=== PATIENT | male | born 1975 | race Caucasian/White ===

== ENCOUNTER → 2018-07-12 | Outpatient (CLI) | payer BC | LOC: M RAD 09:51 | DX: N44.2 Benign cyst of testis (principal) | CPT/HCPCS: 76870 ==

== ENCOUNTER → 2019-07-10 | Outpatient (REF) | payer BC ==
[~2019-07-10] MED LIST: HYDROCORTISONE0.5 %; PRED10TA2
== END ==
LOC: M LAB REF 16:44
PROVIDERS: ATTEND Internal Medicine
DX: Z11.4 Encounter for screening for human immunodeficiency virus [HIV] (principal)

== ENCOUNTER → 2019-07-10 | Outpatient (CLI) | payer BC ==
--- NOTE | 2019-07-10 16:08 | REP ---
Duplex extremity venous ultrasound: Left lower extremity. History: Pain and swelling left leg. History of DVT. Findings: The deep veins are anechoic and fully compressible from the groin to the popliteal fossa in the left lower extremity. Color flow imaging is homogeneous. Spectral Doppler interrogation demonstrates intact respiratory variation in flow and normal manual augmentation of flow. There is no evidence of deep vein thrombosis. Impression: Negative left lower extremity duplex venous ultrasound. No evidence of deep vein thrombosis. Electronically Signed by Jay Castro MD 07/10/2019 04:00 P
== END ==
LOC: M RAD 14:49
PROVIDERS: ATTEND Internal Medicine
DX: M79.605 Pain in left leg (principal); Z86.718 Personal history of other venous thrombosis and embolism

== ENCOUNTER → 2020-05-15 | Outpatient (REF) | payer BC ==
[2020-05-19 19:12] LABS: CHLAMYDIA DNA AMPLIFICATION POSITIVE (NEGATIVE); GC DNA AMPLIFICATION NEGATIVE (NEGATIVE)
== END ==
LOC: M LAB REF 12:23
PROVIDERS: ATTEND Internal Medicine
DX: R30.0 Dysuria (principal)

== ENCOUNTER → 2020-07-14 | Outpatient (REF) | payer BC | LOC: M LAB REF 10:48 | PROVIDERS: ATTEND Internal Medicine | DX: Z11.4 Encounter for screening for human immunodeficiency virus [HIV] (principal) ==

== ENCOUNTER → 2020-10-16 | Outpatient (CLI) | payer BC ==
--- NOTE | 2020-10-16 18:36 | REP ---
INDICATION: PAIN. COMPARISON: 02/03/2014 TECHNIQUE: Five views FINDINGS: Pedicles, spinous and transverse processes are grossly intact. Sacral ala foramina and SI joints unremarkable. Iliac wings intact some minor spurring acetabular roof on the right. Lateral view shows lordosis maintained. There is slight disc space narrowing at L4-5 and L5-S1 with small osteophytes but no spondylolysis or spondylolisthesis. No compression fracture or focal lesion. Minor hypertrophic facet degenerative changes. IMPRESSION: Lumbar spondylosis at L4-5 and L5-S1 without compression deformity or focal lesion. <Electronically signed by Bob Webb > 10/16/20 [id number]
== END ==
LOC: M WUC 10:54
PROVIDERS: ATTEND Physician Assistant Medical
DX: M47.816 Spondylosis without myelopathy or radiculopathy, lumbar region (principal)

== ENCOUNTER → 2021-02-12 | Outpatient (CLI) | payer BC | LOC: M LABSMTC 13:49 | PROVIDERS: ATTEND Anesthesiology | DX: Z01.818 Encounter for other preprocedural examination (principal); Z11.52 Encounter for screening for COVID-19 ==

== ENCOUNTER 2021-02-17 09:46 | Day surgery (SDC) | payer BC ==
[~2021-02-17] VITALS: Ht 188 cm; Wt 168.0 kg
[~2021-02-17 09:46] MED LIST changes: +NS 1,000 ML IV ONE
[2021-02-17] MEDS ORDERED: propofoL 200 MG/20 ML VIAL As Ordered ONE (11:06)
[2021-02-17] MEDS ORDERED: LIDOCAINE 2% 100MG/5ML SDV (FOR ANES.) As Ordered ONE (11:06)
--- NOTE | 2021-02-17 11:40 | ROOR ---
Patient Name: Ayden Valenzuela Procedure Date: 02/17/2021 11:16 AM Date of : 1975 Age: 45 Room: [facility] Gender: Male Note Status: Finalized Procedure: Total Colonoscopy to Cecum + ileoscopy Indications: Screening for colon cancer: Family history of colorectal cancer in distant relative(s) Providers: Adin Dave MD Referring MD: SHIRLEY MATTHEWS JR, MD Requesting Provider: Medicines: Monitored Anesthesia Care Complications: No immediate complications. Procedure: Pre-Anesthesia Assessment: - The heart rate, respiratory rate, oxygen saturations, blood pressure, adequacy of pulmonary ventilation, and response to care were monitored throughout the procedure. The Colonoscope was introduced through the anus and advanced to the terminal ileum, with identification of the appendiceal orifice and IC valve. The colonoscopy was performed without difficulty. The patient tolerated the procedure well. The quality of the bowel preparation was excellent. Findings: The perianal and digital rectal examinations were normal. Non-bleeding internal hemorrhoids were found during retroflexion. The hemorrhoids were small and Grade I (internal hemorrhoids that do not prolapse). No other significant abnormalities were identified in a careful examination of the remainder of the colon. The terminal ileum appeared normal. The exam was otherwise without abnormality on direct and retroflexion views. Impression: - Non-bleeding internal hemorrhoids. - The examined portion of the ileum was normal. - The examination was otherwise normal on direct and retroflexion views. - No specimens collected. - The exam was otherwise normal to the cecum. Recommendation: - Patient has a contact number available for emergencies. The signs and symptoms of potential delayed complications were discussed with the patient. Return to normal activities tomorrow. Written discharge instructions were provided to the patient. - High fiber diet. - Discharge patient to home. - Continue present medications. - Repeat colonoscopy in 7 years for screening purposes. - Return to referring physician. - The findings and recommendations were discussed with the patient's family. Procedure Code(s): --- Professional --- 39120, Colonoscopy, flexible; diagnostic, including collection of specimen(s) by brushing or washing, when performed (separate procedure) Diagnosis Code(s): --- Professional --- Z12.11, Encounter for screening for malignant neoplasm of colon Z80.0, Family history of malignant neoplasm of digestive organs K64.0, First degree hemorrhoids CPT copyright 2019 [employer]. All rights reserved. The codes documented in this report are preliminary and upon house carpenter helper review may be revised to meet current compliance requirements. Adin Dave MD Adin Dave MD 02/17/2021 11:40:18 AM Electronically signed by Adin Dave MD Number of Addenda: 0 Note Initiated On: 02/17/2021 11:16 AM Estimated Blood Loss: Estimated blood loss: none.
[2021-02-17 12:02] VITALS: BP 134/91
== END 2021-02-17 12:04 | disposition home or self-care (01) ==
LOC: M OPP 09:46
PROVIDERS: ATTEND Internal Medicine Gastroenterology
DX: Z12.11 Encounter for screening for malignant neoplasm of colon (principal); Z80.0 Family history of malignant neoplasm of digestive organs; K64.0 First degree hemorrhoids; K62.5 Hemorrhage of anus and rectum; Z88.8 Allergy status to other drugs, medicaments and biological substances; Z87.891 Personal history of nicotine dependence

== ENCOUNTER → 2022-02-09 | Outpatient (CLI) | payer BC ==
[~2022-02-09] MED LIST changes: -NS 1,000 ML IV ONE
== END ==
LOC: M WUC 13:03
PROVIDERS: ATTEND Physician Assistant
DX: S93.402A Sprain of unspecified ligament of left ankle, initial encounter (principal); S93.692A Other sprain of left foot, initial encounter; M77.32 Calcaneal spur, left foot

== ENCOUNTER → 2022-03-22 | Outpatient (CLI) | payer BC | LOC: M RAD 09:56 | PROVIDERS: ATTEND Internal Medicine | DX: K76.0 Fatty (change of) liver, not elsewhere classified (principal) ==

== ENCOUNTER → 2024-01-12 | Outpatient (REF) | payer BC ==
[2024-01-12 17:16] LABS: HEPATITIS B SURFACE ANTIGEN NEGATIVE (NEGATIVE)
[2024-01-12 17:37] LABS: HEPATITIS C VIRUS ABY INDEX < 0.02 INDEX (<0.8)
== END ==
LOC: M LAB REF 16:21
PROVIDERS: ATTEND Internal Medicine
DX: K76.0 Fatty (change of) liver, not elsewhere classified (principal)

== ENCOUNTER → 2024-03-26 | Outpatient (CLI) | payer BC | LOC: M RAD 08:19 | PROVIDERS: ATTEND Internal Medicine | DX: K76.0 Fatty (change of) liver, not elsewhere classified (principal); R16.0 Hepatomegaly, not elsewhere classified ==

== ENCOUNTER → 2024-05-03 | Outpatient (REF) | payer BC ==
[2024-05-03 13:16] LABS: CK-MB VALUE MASS 4.6 NG/ML (<3.6)
[2024-05-03 13:24] LABS: MB/CK RELATIVE INDEX 2.15 (< OR =4)
== END ==
LOC: M LAB REF 12:08
PROVIDERS: ATTEND Internal Medicine
DX: R07.9 Chest pain, unspecified (principal)

== ENCOUNTER → 2025-07-29 | Outpatient (CLI) | payer BC | LOC: M RAD 13:39 | PROVIDERS: ATTEND Internal Medicine | DX: F17.211 Nicotine dependence, cigarettes, in remission (principal) ==